=== PATIENT | male | born 1950 | race Caucasian/White ===

== ENCOUNTER → 2017-04-09 | Outpatient (CLI) | payer MEDICARE, BC ==
--- NOTE | 2017-04-09 15:43 | Diagnostic Imaging Report ---
Indication: COUGH Technique: 2 views of the chest Comparison: none. Findings: Lungs and pleural spaces are clear. Heart size is normal. Bones are unremarkable except for mild degenerative thoracic spondylosis. Impression: No acute process
== END | disposition home or self-care (01) ==
LOC: RAD 13:06
DX: R05 Cough (principal); M47.894 Other spondylosis, thoracic region
CPT/HCPCS: 71020